=== PATIENT | female | born 1950 | race Caucasian/White ===

== ENCOUNTER 2017-07-01 23:41 | Emergency (ER) | payer MEDICARE ==
[~2017-07-01] VITALS: Ht 160 cm; Wt 63.0 kg
[2017-07-02] MEDS ORDERED: SIMV20TA6 PO (00:03)
[2017-07-02] MEDS ORDERED: ALEN70TA3 PO (00:03)
[2017-07-02] MEDS ORDERED: LEVO50TA8 PO (00:03)
--- NOTE | 2017-07-02 00:31 | NUR ---
Pt is received alert, responsive as she came in c/o Diarrhea x2days as everytime she ate pt will have an episode. Her care continue with MD at bedside as she will be monitor laury and LAB will be done as ordered.
[2017-07-02 01:00] LABS: BASOPHILS % (AUTO) 0.3 % (0.0-2.0); EOSINOPHILS # (AUTO) 0.2 K/uL (0.0-0.7); EOSINOPHILS % (AUTO) 2.8 % (0.0-7.0); HEMATOCRIT 40.7 % (37-47); HEMOGLOBIN 13.4 G/DL (12.0-16.0); LYMPHOCYTES # (AUTO) 1.6 K/UL (0.8-4.8); LYMPHOCYTES % (AUTO) 23.2 % (20.5-51.5); MEAN CORPUSCULAR HEMOGLOBIN 31.3 UUG (27.0-31.0); MEAN CORPUSCULAR HGB CONC 33 g/dL (32.0-37.0); MEAN CORPUSCULAR VOLUME 95.5 FL (81.0-99.0); MONOCYTES # (AUTO) 0.6 K/UL (0.1-1.30); NEUTROPHILS # (AUTO) 4.6 K/UL (1.8-8.9); NEUTROPHILS % (AUTO) 65.7 % (38.5-71.5); PLATELET COUNT (AUTO) 181 K/UL (150-450); RED BLOOD CELL COUNT(AUTO) 4.26 MIL/UL (4.2-5.4)
[2017-07-02 01:15] LABS: CREATININE 0.7 mg/dL (0.6-1.3); POTASSIUM 3.1 mmol/L (3.5-5.1)
[2017-07-02 01:20] LABS: BILIRUBIN,DIRECT 0.2 mg/dL (0.0-0.2); BILIRUBIN,TOTAL 0.7 mg/dL (0.2-1.0); TOTAL PROTEIN, SERUM 7.3 g/dL (6.4-8.2)
--- NOTE | 2017-07-02 01:39 | NUR ---
Pt is noted resting in bed with on the other bed as she is given 40meq of K-DUR for Potassium level off 3.1. Her care continue as she is been monitor.
[2017-07-02 02:18] VITALS: BP 110/72
--- NOTE | 2017-07-02 02:19 | NUR ---
Pt is noted , alert, responsive as she is been discharge to home with discharge instructions given on Diarrhea and no s/s off distress or c/o pain as pt remain stable.
== END 2017-07-02 02:16 | disposition home or self-care (01) ==
LOC: ER 23:47
DX: R19.7 Diarrhea, unspecified (principal); E87.6 Hypokalemia; E03.9 Hypothyroidism, unspecified; E78.5 Hyperlipidemia, unspecified; Z88.0 Allergy status to penicillin
CPT/HCPCS: 36415; 83690; 85025; A4663